=== PATIENT | female | born 1970 | race Caucasian/White ===

== ENCOUNTER → 2017-11-19 | Day surgery (SDC) | payer OTHER, MEDICARE ==
[~2017-11-19] VITALS: Ht 170.2 cm; Wt 127.0 kg
[~2017-11-19] MED LIST: ACETAMINOPHEN500 M4 PO; CLONAZEPAM1 M2 PO; DIOVAN160 MG PO; MULTIVITAMINS1 EAC9 PO; NEURONTIN300 M1 PO; NORCO 10-325 T1 EACH PO; PRAZOSIN HCL1 M1 PO; TIZANIDINE HCL4 M1 PO; VENLAFAXINE HC150 MG PO; VENTOLIN HFA18 GM INH
--- NOTE | 2017-11-20 15:08 | RADIOLOGY REPORT ---
EXAMINATION: XR LUMBOSACRAL SPINE CLINICAL INFORMATION: 47-year-old female for spinal cord stimulator implant placement. COMPARISON: None. TECHNIQUE: 20 spot fluoroscopic images were obtained at the time of the procedure. The procedure was performed by Dr. Guevara. FLUOROSCOPY TIME: 2.3 minutes. FINDINGS: Multiple spot radiographs were obtained at the time of the spinal cord stimulator implant placement. Full procedural details will be dictated by the performing surgeon, Dr. Guevara. IMPRESSION: Multiple fluoroscopic spot radiographs were obtained at the time of the spinal cord stimulator implant placement. Full procedural details will be dictated by the performing surgeon Dr. Guevara.
--- NOTE | 2017-11-21 09:20 | Operative Report ---
Operative/Inv Procedure Report Surgery Date: 11/19/17 Name of Procedure: Permanent implant of spinal column stimulator implant - percutaneous Octrodes x 2 and Proclaim (IPG) implant under fluoroscopic guidence Pre-Operative Diagnosis: HNP lumbar spine, Lumbar spinal stenosis, CRPS - right lower extremity Post-Operative Diagnosis: HNP lumbar spine, Lumbar spinal stenosis, CRPS - right lower extremity Estimated Blood Loss: less than 50ml Surgeon/Bus Escort: Ismael LALA,Gold Fermin Anesthesia: local monitored anesthesi Monitors: As per anesthesia IV Fluids: As per anesthesia Implants: Quintero system - Percutaneous epidural electrodes and Proclaim IPG Urine Output: as per anesthesia Drains: None Specimens: None Microbiology: None Tourniquet: None Complications: None Condition: Stable Operative Indication: Patient with Chronic LBP with underlying multi level DDD and increased BMI, Hx of multiple surgical procedures on right ankle with chronic burning dysesthesia right ankle and leg-- Diagnosed with , right extremity, failed to respond to conventional pain management procedure. The pt responded favorably to the SCS Trial and expressed interest in the Perm. implant of the same. I explained to the pt about the risks and benefits of the above procedure and the pt understood the same. Operative/Procedure Note Note: The pt was accompanied to the OR - 5, placed prone with all pressure points well padded. Anesthesia was carried out bu Dr. Amador and his team. Combination of Lidocaine 2 % and Bupivacaine 0.5 % (both PF and without Epi) was used for the local infection and total amount used is in the RN charts. AP and lateral fluoroscopy was used for the procedure. A 14 - gauge epidural needle was placed via the right para median approach, in the lumbar area and advanced medially and anteriorly to enter the posterior epidural space at the mid line at L1/L2 inter laminar space, without CSF, Heme or lower extremity paresthesia. At this point, an 8- point contact electrode of Alleantia was passed through the needle, under continuous fluoroscopy and advanced cephalad. The electrode was steered cephalad to lie right paramedian plane occupying the bodies of T9 to Cephalad T11 vertebral bodies. At this point, via right para median approach, another Tuohy needle was advanced in a shallow angle in to the epidural space at the L2/L3 interlaminar level and another 8 point contact percutaneous electrode was advanced cephalad to lie in the mid line, to the left side of previously placed electrode and occupying T9- T11 vertebral level, in juxta position to the first lead. Up on stimulation of both electrodes at the same time, the patient reported concordant paresthesia covering the lower back, and right lower extremity including the ankle / foot area . The patient expressed satisfaction with this lead location. At this point Under deeper levels of sedation, after infiltration of skin above and below the Tuohy needle. Vertical skin incision was given and deepened with blunt and sharp dissection to the right lumbar paraspinal area. Under fluoroscopic guidance, both Tuohy needles were removed along with the stylet from the electrode and care was taken not to disturb the final placement of the both electrodes, thought out the procedure. Both electrodes were anchored to the para spinal tissues with click anchor provided by the rep and small tug on the electrodes, under fluoroscopy did not make changes in the epidural location of the electrodes At this point, attention was drawn to the right gluteal area and skin was infiltrated with local anestheric mixture. About 6 Cm horizontal skin incision was given , deepened to the subcutaneous plane and upper and lower subcutaneous flaps were raised with blunt and sharp dissection, hemostasis secured and both wounds irrigated with antibiotic saline solution. tunnel neil was passed from the right gluteal to the lumbar wound, both electrodes were delivered in to the gluteal wound, connected to the Proclaim IPG and the impedance was checked to be WNL. At this point, after securing hemostasis, the IPG was placed in the gluteal subcutaneous plain making sure to visualize the company piper through the wound and excess electrodes coiled and placed between the IPG and the gluteal muscles. Both wounds closed in layers and skin with kaycee. The patient tolerated the procedure well, remained stable hemodynamically and intact neurologically with 5/5 MP both lower extremities including the ankle DF/ PF The patient was discharged with few programs to cover the LB and right lower extremity, with post op instructions. Discharge Disposition: Same Day Admissions
== END ==
LOC: STS 00:52
DX: M51.26 Other intervertebral disc displacement, lumbar region (principal); G90.521 Complex regional pain syndrome I of right lower limb; M54.5 Low back pain; R20.8 Other disturbances of skin sensation; I10 Essential (primary) hypertension; J45.909 Unspecified asthma, uncomplicated; G47.33 Obstructive sleep apnea (adult) (pediatric)
CPT/HCPCS: 36415; 72100; 81025; 82436; 93005; 93010; C1767; C1778; C9399; J0690; J2001; J2250; J3490